=== PATIENT | female | born 1970 | race Caucasian/White ===

== ENCOUNTER 2017-11-19 13:11 | Day surgery (SDC) | payer MEDICAID ==
[~2017-11-19] VITALS: Ht 160 cm; Wt 61.0 kg
[~2017-11-19 13:11] MED LIST: BACTRIM PO; CENTRUM1 TA1 PO; GUAIFEN-PSE 6001 TER PO; MVI; PREDNISONE20 MG PO; ZITHROMAX Z PA250 MG PO
[2017-11-19] MEDS ORDERED: TYLENOL PM EXTR1 TA1 PO (13:21)
[2017-11-19] MEDS ORDERED: VITAMIN FLUSH-F1 CAP PO (13:22)
[2017-11-19] MEDS ORDERED: LOPROX TP (13:24)
[2017-11-19 13:58] VITALS: BP 97/71; PULSE 70; TEMP 97.7
[2017-11-19 15:00] VITALS: BP 99/56; PULSE 70; TEMP 97.7
[2017-11-19 15:15] VITALS: BP 99/47; PULSE 53
[2017-11-19] MEDS ORDERED: PROTONIX 40MG T40 MG PO (15:18)
[2017-11-19 15:30] VITALS: BP 107/64; PULSE 52
== END 2017-11-19 16:09 | disposition home or self-care (01) ==
LOC: SDCO 13:11
DX: R19.7 Diarrhea, unspecified (principal); K64.0 First degree hemorrhoids; K64.4 Residual hemorrhoidal skin tags; R63.4 Abnormal weight loss; F17.210 Nicotine dependence, cigarettes, uncomplicated; N39.0 Urinary tract infection, site not specified; B18.2 Chronic viral hepatitis C; Z80.1 Family history of malignant neoplasm of trachea, bronchus and lung
CPT/HCPCS: J2704; J7030